=== PATIENT | female | born 1970 | race Caucasian/White ===

== ENCOUNTER → 2018-07-19 | Outpatient (CLI) | payer OTHER ==
--- NOTE | 2018-07-19 10:47 | RAD ---
CHEST PA LATERAL dated 07/19/2018 9:53 AM. Comparison: None. Clinical Indication: RIGHT SIDE CHEST PAIN SINCE TUESDAY. Findings: PA and lateral views of the chest were obtained. Heart and mediastinal contours within normal limits. Lungs are clear without focal consolidation. Vascular interstitium within normal limits. No pleural effusion or pneumothorax. Impression: No acute radiographic abnormality. Electronically signed by: Jamie Lam MD (07/19/2018 10:44 AM) [id number]
== END | disposition home or self-care (01) ==
LOC: RAD 09:45
PROVIDERS: ATTEND Physician Assistant
DX: R07.89 Other chest pain (principal)
CPT/HCPCS: 71046

== ENCOUNTER → 2020-05-01 | Outpatient (CLI) | payer BC ==
--- NOTE | 2020-05-01 16:44 | RAD ---
DATE: 05/01/2020 8:00 AM EXAM: MAMMO CECILIA SCREENING BILATERAL HISTORY: Screening COMPARISON: 07/22/2015 Bilateral CC and MLO views of the breasts were performed. Bilateral breast tomosynthesis was performed in CC and MLO projections. This study was interpreted with the benefit of Computerized Aided Detection (CAD). FINDINGS: Breast Density: HETERO The breast parenchyma Is heterogeneously dense, which could reduce sensitivity of mammography. Breast parenchyma level C No suspicious masses, microcalcifications or architectural distortion is present to suggest malignancy in either breast. The visualized axillae are unremarkable. IMPRESSION: No mammographic evidence of malignancy. BI-RADS CATEGORY: 1 NEGATIVE RECOMMENDED FOLLOW-UP: 12M 12 MONTH FOLLOW-UP Annual screening mammography is recommended, unless clinically indicated sooner based on symptoms or change in physical exam. PQRS compliance statement: Patient information was entered into a reminder system with a target due date for the next mammogram. Mammography is a sensitive method for finding small breast cancers, but it does not detect them all and is not a substitute for careful clinical examination. A negative mammogram does not negate a clinically suspicious finding and should not result in delay in biopsying a clinically suspicious abnormality. "Our facility is accredited by the [employer] Mammography Program."
== END | disposition home or self-care (01) ==
LOC: MAMMO 07:45
PROVIDERS: ATTEND Physician Assistant
DX: Z12.31 Encounter for screening mammogram for malignant neoplasm of breast (principal)
CPT/HCPCS: 77063; 77067

== ENCOUNTER → 2020-06-03 | Outpatient (CLI) | payer BC ==
--- NOTE | 2020-06-03 13:38 | RAD ---
SHOULDER 2+V LEFT DATE: 06/03/2020 12:00 AM INDICATION: Reason: RIGHT SHOULDER PAIN AND NECK PAIN / Spl. Instructions: / History: COMPARISON: None. FINDINGS: Bones: There is no evidence of acute fracture or dislocation. Joints: The joint spaces are normal. The acromiohumeral distance is not narrowed. Miscellaneous: No abnormal soft tissue calcifications in the shoulder. IMPRESSION: Normal exam Electronically signed by: Cecil Araiza MD (06/03/2020 1:35 PM) INDY
--- NOTE | 2020-06-03 13:39 | RAD ---
CERVICAL SPINE 5V DATE: 06/03/2020 12:00 AM INDICATION: Reason: RIGHT SHOULDER AND CSPINE PAIN / Spl. Instructions: / History: COMPARISON: None. FINDINGS: The cervical spine is visualized to the level of the cervicothoracic junction on the lateral views. Bones/Alignment: No evidence of acute fracture. There is no listhesis. Normal alignment of the lateral masses of C1 on C2. Joints: Mild degenerative disc disease. The facets are normally aligned. Soft tissue: No significant prevertebral soft tissue swelling. IMPRESSION: Mild cervical spondylosis Electronically signed by: Cecil Araiza MD (06/03/2020 1:36 PM) SUAD
== END | disposition home or self-care (01) ==
LOC: DXRAD 10:52
PROVIDERS: ATTEND Physician Assistant
DX: M47.812 Spondylosis without myelopathy or radiculopathy, cervical region (principal); M50.30 Other cervical disc degeneration, unspecified cervical region; M25.512 Pain in left shoulder
CPT/HCPCS: 72050; 73030

== ENCOUNTER → 2020-07-09 | Outpatient (CLI) | payer BC ==
--- NOTE | 2020-07-09 16:09 | RAD ---
CHEST PA LATERAL INDICATION: FOLLOW UP NODULES SEEN ON A SHOULDER XRAY . COMPARISON STUDY: Shoulder radiograph 06/03/2020. Chest radiograph 07/19/2018. FINDINGS: Lungs: Normal lung volume. No pulmonary mass or consolidation. The tracheobronchial tree and hilar structures are normal. Pleura: No pleural effusion or pneumothorax. Heart and Mediastinum: The cardiomediastinal silhouette is normal. The great vessels of the thorax are normal. Calcified right hilar lymph nodes consistent with remote granulomatous disease. Bones and Soft Tissues: The bones and soft tissues are within normal limits. IMPRESSION: No pulmonary mass or consolidation. If there is persistent clinical concern, CT could be obtained. Electronically signed by: Cecil Araiza MD (07/09/2020 4:06 PM) [id number]
== END ==
LOC: DXRAD 12:28
PROVIDERS: ATTEND Physician Assistant
DX: R05 Cough (principal); R59.9 Enlarged lymph nodes, unspecified
CPT/HCPCS: 71046